=== PATIENT | female | born 1970 | race Caucasian/White ===

== ENCOUNTER 2017-10-22 10:11 | Emergency (ER) | payer MEDICARE, MEDICAID ==
[~2017-10-22] VITALS: Ht 160 cm; Wt 92.2 kg
[~2017-10-22 10:11] MED LIST: DIAZ5TAB4; DIPH25CA61; GABA-826; HYDR-3240; IBUP100T4; INDO50CA; MEDR150V; PROM25SU35; SUMA100T4; TIZA4CAP; TRAM-385; VERA240T86
[2017-10-22 11:17] LABS: BASOPHILS # (AUTO) 0.04 x10^3/uL (0-0.1); BASOPHILS % (AUTO) 1 % (0-1); EOSINOPHILS # (AUTO) 0.08 x10^3/uL (0-0.4); EOSINOPHILS % (AUTO) 1 % (1-7); LYMPHOCYTES # (AUTO) 1.78 x10^3/uL (1-3.4); LYMPHOCYTES % (AUTO) 27 % (22-44); MD NO; MEAN CORPUSCULAR HEMOGLOBIN 29.3 pg (27.0-34.8); MEAN CORPUSCULAR HGB CONC 33.7 g/dL (32.4-35.8); MEAN PLATELET VOLUME 8.1 fL (7.4-10.4); MONOCYTES % (AUTO) 8 % (2-9); NEUTROPHILS # (AUTO) 4.26 x10^3/uL (1.8-6.8); NEUTROPHILS % (AUTO) 64 % (42-75); PLATELET COUNT 236 x10^3/uL (130-400); RED BLOOD COUNT 4.93 x10^6/uL (3.82-5.3); RED CELL DISTRIBUTION WIDTH 13.2 % (9.6-15.2)
[2017-10-22 11:28] LABS: ALANINE AMINOTRANSFERASE 28 U/L (12-78); ALBUMIN 3.4 g/dL (3.4-5.0); ANION GAP 5 mmol/L (5-15); CALCIUM 8.5 mg/dL (8.5-10.1); CHLORIDE 113 mmol/L (98-107); CREATININE 0.71 mg/dL (0.55-1.02)
[2017-10-22 11:31] LABS: ALKALINE PHOSPHATASE 93 U/L (45-117); BILIRUBIN,TOTAL 0.3 mg/dL (0.2-1.0); TOTAL PROTEIN 7.1 g/dL (6.4-8.2)
[2017-10-22] MEDS ORDERED: KETOROLAC 30 MG/1 ML IM ONE (13:30)
[2017-10-22] MEDS ORDERED: KETOROLAC 30 MG/1 ML ONE (13:34)
[2017-10-22 13:39] VITALS: BP 116/75
== END 2017-10-22 13:41 | disposition home or self-care (01) ==
LOC: ED 12:23
DX: R10.31 Right lower quadrant pain (principal); M79.7 Fibromyalgia; G43.909 Migraine, unspecified, not intractable, without status migrainosus; Z90.49 Acquired absence of other specified parts of digestive tract; Z90.710 Acquired absence of both cervix and uterus
CPT/HCPCS: 36415; 74018; 76830; 80053; 83690; 85025; 96372; 99285; J1885

== ENCOUNTER 2019-02-03 13:42 | Emergency (ER) | payer MEDICARE, MEDICAID ==
[~2019-02-03] VITALS: Ht 160 cm; Wt 96.6 kg
[~2019-02-03 13:42] MED LIST changes: +BACL20TA PO; +FLUT9.9S NAS; -INDO50CA; +INDO50CA15; +MONT10TA6 PO; +TOPI200T6 PO; +VERA240T10; -VERA240T86; +[UNRECOGNIZED DRUG - CODE] PO; +[UNRECOGNIZED DRUG - OTHER] PO
[2019-02-03 13:58] VITALS: BP 124/86
--- NOTE | 2019-02-03 14:10 | NUR ---
PT HERE FOR RIGHT ANKLE PAIN, STATES TRAUMA RECENTLY.
[2019-02-03] MEDS ORDERED: IBUPROFEN 200 MG TABLET ONE (14:14)
[2019-02-03] MEDS ORDERED: IBUPROFEN 600 MG TABLET PO ONE (14:30)
--- NOTE | 2019-02-03 14:37 | NUR ---
Patient/Caregiver given discharge instructions and they have confirmed that they understand the instructions. Patient ambulatory with steady gait.
== END 2019-02-03 14:39 | disposition home or self-care (01) ==
LOC: ED 14:30
DX: S93.601A Unspecified sprain of right foot, initial encounter (principal); Z90.49 Acquired absence of other specified parts of digestive tract; Z90.710 Acquired absence of both cervix and uterus; Z79.899 Other long term (current) drug therapy; W20.8XXA Other cause of strike by thrown, projected or falling object, initial encounter; Y93.89 Activity, other specified; Y92.89 Other specified places as the place of occurrence of the external cause; Y99.8 Other external cause status
CPT/HCPCS: 99283

== ENCOUNTER 2020-01-25 14:42 | Emergency (ER) | payer MEDICARE, MEDICAID ==
[~2020-01-25] VITALS: Ht 160 cm; Wt 100.0 kg
[2020-01-25 14:57] VITALS: BP 118/87
[2020-01-25] MEDS ORDERED: SODIUM CHLORIDE 0.9% 1,000ML IVBOLUS ONE (15:30)
[2020-01-25] MEDS ORDERED: KETOROLAC 30 MG/1 ML IVPush ONE (15:30)
[2020-01-25] MEDS ORDERED: DIPHENHYDRAMINE 50 MG/ML, 1ML IVPush ONE (15:30)
[2020-01-25] MEDS ORDERED: METOCLOPRAMIDE 5 MG/ML, 2ML IVPush ONE (15:30)
[2020-01-25] MEDS ORDERED: METOCLOPRAMIDE 5 MG/ML, 2ML ONE (15:59)
[2020-01-25] MEDS ORDERED: DIPHENHYDRAMINE 50 MG/ML, 1ML ONE (15:59)
[2020-01-25] MEDS ORDERED: KETOROLAC 30 MG/1 ML ONE (15:59)
--- NOTE | 2020-01-25 17:00 | NUR ---
Patient/Caregiver given discharge instructions and they have confirmed that they understand the instructions. Patient ambulatory with steady gait.
== END 2020-01-25 17:02 | disposition home or self-care (01) ==
LOC: ED 15:11
DX: G43.909 Migraine, unspecified, not intractable, without status migrainosus (principal); E66.01 Morbid (severe) obesity due to excess calories; Z90.49 Acquired absence of other specified parts of digestive tract; Z90.710 Acquired absence of both cervix and uterus; Z68.39 Body mass index [BMI] 39.0-39.9, adult
CPT/HCPCS: 96361; 96374; 96375; 99284; J1200; J1885; J2765; J7030